=== PATIENT | male | born 1975 | race Caucasian/White ===

== ENCOUNTER 2018-12-26 20:40 | Emergency (ER) | payer MEDICAID ==
[~2018-12-26] VITALS: Ht 180.3 cm; Wt 84.1 kg
[~2018-12-26 20:40] MED LIST: FENT1PAT4 TD; INSLAN SQ; METO25XL PO; TRAZ-220 PO
[2018-12-26 20:54] VITALS: BP 127/73
[2018-12-26 21:09] LABS: GLUCOSE,POINT OF CARE 87 MG/DL (70-110)
== END 2018-12-26 22:28 | disposition home or self-care (01) ==
LOC: EMS 20:42
DX: F10.239 Alcohol dependence with withdrawal, unspecified (principal); F17.210 Nicotine dependence, cigarettes, uncomplicated; F15.90 Other stimulant use, unspecified, uncomplicated; F32.9 Major depressive disorder, single episode, unspecified; E11.9 Type 2 diabetes mellitus without complications; I10 Essential (primary) hypertension; Z91.041 Radiographic dye allergy status; Y90.0 Blood alcohol level of less than 20 mg/100 ml